=== PATIENT | female | born 1985 ===

== ENCOUNTER 2019-10-24 15:16 | Emergency (ER) | payer OTHER ==
[~2019-10-24] VITALS: Ht 149.9 cm; Wt 61.7 kg
[~2019-10-24 15:16] MED LIST: PNEU16DI2; SKELAXIN800 MG PO
[2019-10-24] MEDS ORDERED: PRENA1 CHEW TA1.4 MG (15:35)
== END 2019-10-24 18:08 | disposition home or self-care (01) ==
LOC: ER 15:16
DX: M62.830 Muscle spasm of back (principal); M54.5 Low back pain

== ENCOUNTER 2019-12-13 16:49 | Inpatient (IN) | payer OTHER ==
[~2019-12-13] VITALS: Ht 149.9 cm; Wt 66.7 kg
[~2019-12-13 16:49] MED LIST changes: +PRENA1 CHEW TA1.4 MG PO
[2019-12-13] MEDS ORDERED: IRON PO (17:47)
[2019-12-13] MEDS ORDERED: ACIDO FOLICO PO (17:48)
[2019-12-14] MEDS ORDERED: FERROUS SULFAT325 MG PO (10:27)
[2019-12-14] MEDS ORDERED: FOLIC ACID0.8 M1 PO (10:32)
== END 2019-12-17 11:42 | disposition home or self-care (01) | DRG 788 ==
LOC: LDR 16:49 → OB/GYN 16:49 → O/R 16:49 → OB/GYN 12-14 12:23
PROVIDERS: ADMIT Obstetrics & Gynecology Obstetrics; ATTEND Obstetrics & Gynecology Obstetrics
PROC: 10D00Z1 Extraction of Products of Conception, Low, Open Approach (ICD-10-PCS; principal; 2019-12-13)
PROC: 4A1HXCZ Monitoring of Products of Conception, Cardiac Rate, External Approach (ICD-10-PCS; 2019-12-13)
DX: O82 Encounter for cesarean delivery without indication (principal); Z3A.38 38 weeks gestation of pregnancy; Z37.0 Single live birth; Z20.828 Contact with and (suspected) exposure to other viral communicable diseases